=== PATIENT | male | born 1960 | race Caucasian/White ===

== ENCOUNTER 2021-02-13 08:13 | Day surgery (SDC) | payer BC ==
[~2021-02-13] VITALS: Ht 170.2 cm; Wt 91.7 kg
[~2021-02-13 08:13] MED LIST: 00186-0370-20 IH; RT SPIRIVA18 MCG IH; TENORMIN 2525 MG/TAB PO
[2021-02-13] MEDS ORDERED: ASPIRIN 81M81 MG/TA2 PO (08:28)
[2021-02-13] MEDS ORDERED: VENTOLIN0.09 MG IH (08:28)
[2021-02-13] MEDS ORDERED: BUSPAR10 MG PO (08:29)
[2021-02-13] MEDS ORDERED: LIPITOR20 MG PO (08:29)
[2021-02-13] MEDS ORDERED: ATARAX 25MG25 MG/TAB PO (08:29)
[2021-02-13] MEDS ORDERED: 00186-0370-20 IH (08:29)
[2021-02-13] MEDS ORDERED: CLARITIN LIQUI-10 MG PO (08:30)
[2021-02-13] MEDS ORDERED: RT SPIRIVA18 MCG IH (08:31)
[2021-02-13] MEDS ORDERED: TENORMIN100 MG PO (08:31)
[2021-02-13] MEDS ORDERED: UNIPHYL600 MG PO (08:31)
[2021-02-13] MEDS ORDERED: NORVASC 5MG5 MG/TAB PO (08:31)
[2021-02-13 08:32] VITALS: BP 141/100; PULSE 75; TEMP 99
[2021-02-13 10:00] VITALS: BP 103/77; PULSE 67; TEMP 97.5
--- NOTE | 2021-02-13 10:00 | NUR ---
PT TO [facility]AY [facility] VIA CART FROM ENDO LAB, WALKED TO CHAIR, IN ROOM, CALL LIGHT IN REACH, TAKES SNACK, NO C/O
[2021-02-13 10:15] VITALS: BP 112/78; PULSE 66
--- NOTE | 2021-02-13 10:15 | NUR ---
INTO SEE PT AND
[2021-02-13 10:30] VITALS: BP 115/78; PULSE 69
--- NOTE | 2021-02-13 10:30 | NUR ---
DISCHARGE INST. GIVEN TO PT AND ON MODERATE SEDATION PRECAUTIONS, AND COLONSCOPY SCREENING ORDERS WITH VERBAL UNDERSTANDING. IV D'CD INTACT, PT IS UP IN ROOM DRESSED AND DISCHARAGED VIA W/C TO CAR WITH AT 1040
[2021-02-13 13:11] VITALS: BP 105/72; PULSE 69
== END 2021-02-13 10:40 | disposition home or self-care (01) ==
LOC: SDCO 08:13
DX: Z12.11 Encounter for screening for malignant neoplasm of colon (principal); K57.30 Diverticulosis of large intestine without perforation or abscess without bleeding; I10 Essential (primary) hypertension; J44.9 Chronic obstructive pulmonary disease, unspecified; E78.5 Hyperlipidemia, unspecified; F17.210 Nicotine dependence, cigarettes, uncomplicated; F41.9 Anxiety disorder, unspecified; Z20.822 Contact with and (suspected) exposure to COVID-19; Z79.899 Other long term (current) drug therapy; Z88.0 Allergy status to penicillin
CPT/HCPCS: J2704; J7120

== ENCOUNTER 2023-03-01 09:19 | Inpatient (IN) | payer BC ==
[~2023-03-01] VITALS: Ht 170.2 cm; Wt 94.6 kg
[~2023-03-01 09:19] MED LIST changes: +ANTACID 225 MG360 M1 PO; +ANTACID500 M1 PO; +ASPIRIN 81M81 MG/TA2 PO; +ATARAX 25MG25 MG/TAB PO; +ATIVAN 1MG T1 MG/TAB PO; +BREZTRI AEROS10.7 GM IH; +BUSPAR10 MG PO; +CLARITIN 1010 MG/TAB PO; +CLARITIN LIQUI-10 MG PO; +CLEOCIN HCL300 MG PO; +LEVAQUIN 750MG750 M1 PO; +LIPITOR20 MG PO; +LOPRESSOR 225 MG/TAB PO; +NORVASC 5MG5 MG/TAB PO; +OXYGEN NASAL.CANN; +PREDNISONE20 MG PO; +PROBIOTIC BLEN1 EACH PO; +PROTONIX 40MG T40 MG PO; +TENORMIN100 MG PO; +TESSALON P100 MG/CAP PO; +UNIPHYL600 MG PO; +VENTOLIN0.09 MG IH; +WELLBUTRIN 75MG75 MG PO; +WELLBUTRIN XL150 MG PO
[2023-03-01 09:36] LABS: ARTERIAL BLD GAS O2 SATURATION 97.6 % (92-100); ARTERIAL BLOOD GAS BASE EXCESS 4.7 (-2-2); ARTERIAL BLOOD GAS PCO2 32.7 mmHg (35-45); ARTERIAL BLOOD GAS PO2 94.5 mmHg (80-100); ARTERIAL BLOOD GAS pH 7.54 (7.35-7.45)
[2023-03-01 09:40] LABS: HEMOGLOBIN 11.4 g/dl (13.5-18.0); MEAN CELL VOLUME 86 fl (80.0-100.0); MEAN CORPUSCULAR HEMOGLOBIN 28 pg (27-31); MEAN CORPUSCULAR HGB CONC 33 g/dl (33.0-37.0); MEAN PLATELET VOLUME 9.3 fl (7.4-10.4); PLATELET COUNT 447 K/mm3 (130-400); RED BLOOD COUNT 4.03 M/mm3 (4.20-5.60); REDCELL DISTRIBUTION WIDTH-CV 15.6 % (11.5-14.5)
[2023-03-01 09:41] LABS: HEMATOCRIT 34.8 % (42.0-52.0)
[2023-03-01 10:00] LABS: ALBUMIN 2.2 gm/dL (3.4-4.8); BILIRUBIN,TOTAL 0.7 mg/dL (0.2-1.2); CALCIUM 9.4 mg/dL (8.4-10.2); CREATININE, serum 1.12 mg/dL (0.72-1.25); POTASSIUM 4.5 mmol/L (3.5-4.5); TOTAL PROTEIN 5.8 gm/dL (6.2-8.1)
[2023-03-01 10:01] LABS: BAND 6 % (0-10); LYMPHOCYTE 2 % (20.0-51.0)
[2023-03-01 10:02] LABS: ANISOCYTOSIS 1+; NEUTROPHILS 89 % (42.0-75.2); PLATELET ESTIMATE INCREASED (NORMAL)
[2023-03-01 10:03] LABS: POLYCHROMASIA 1+
--- NOTE | 2023-03-01 14:25 | NUR ---
boat worker met with patient's spouse. Patient and spouse are awaiting care options from Dr Dodd's office from recent blood work and are hoping for chemo options. Patient's cancer is progressing and he is becoming more difficult for spouse to manage at home. Worker provided information on nursing homes with [employer] share information. Spouse stated that she could private pay for a month if needed. Worker provided information on the [facility] if future treatment was an option. Patient's son, Kyle arrived to support spouse.
--- NOTE | 2023-03-01 14:35 | NUR ---
Worker spoke with spouse and provided information on [facility] house and [facility]. Worker provided [facility] a referral. Spouse plans to take patient home today and will reach out for a placement after she receives information from Dr Dodd's office. Worker collaborated with nursing regarding the above information.
[2023-03-01] MEDS ORDERED: CLEOCIN HCL300 MG PO (17:57)
--- NOTE | 2023-03-01 18:14 | NUR ---
Pt. arrived to the floor via wheelchair. Pt. is A&OX3, assessment complete. INT to rt. hand. Pt. denies pain or other needs, call light within reach.
[2023-03-01 18:30] VITALS: BP_SYST 149
[2023-03-01 19:28] VITALS: BP 149/91; PULSE 134; TEMP 98.3
[2023-03-01 21:00] VITALS: BP_SYST 131
[2023-03-01 23:24] VITALS: BP 131/86; PULSE 108; TEMP 98.1
[2023-03-02] VITALS (11 sets, daily range): BP systolic 96–144; BP diastolic 61–89; PULSE 113–122; TEMP 97.8–98.1
--- NOTE | 2023-03-02 01:29 | NUR ---
PT'S IV BECAME DISLODGED WHEN TRYING TO RUN VIBRAMYCIN. 3 ATTEMPTS MADE BY THIS NURSE, ANOTHER NURSE, AND PAY STATION ATTENDANT WTIH NO SUCCESS. JIG GRINDER SET UP OPERATOR CHRISTINE CA CONTACTED. CENTRAL LINE ORDERED BY JIG GRINDER SET UP OPERATOR DR. BRUSH. PT TAKEN TO PACU FOR PLACEMENT. TOLERATED PROCEDURE WELL. CENTRAL LINE IS IN RIGHT JUGULAR, TRIPLE LUMEN. ALL THREE LUMENS FLUSH EASILY. VIBRAMYCIN RAN SUCCESSFULLY. PRN ATIVAN GIVEN FOR ANXIETY/SOA.
--- NOTE | 2023-03-02 07:24 | NUR ---
On 03/01/23, [facility] declined patient stating they could not meet his needs.
--- NOTE | 2023-03-02 07:45 | NUR ---
Pt. sitting up in bed with at bedside. Dr. Dodd in the room discussing pt. prognosis at this time. After discussion was complete, shift assessment completed. Pt. is A&OX3, assessment complete. TLC to rt. IJ patent. Pt. denies pain. Pt. reports feeling SOA and request Ativan. Gave per orders. Pt. and deny further needs, call light within reach.
--- NOTE | 2023-03-02 19:24 | NUR ---
RECEIVED CHANGE OF SHIFT REPORT FROM DAY SHIFT RN.
[2023-03-03] VITALS (11 sets, daily range): BP systolic 113–133; BP diastolic 68–78; PULSE 107–132; TEMP 97.8–98.4
[2023-03-03 06:53] LABS: MEAN CELL VOLUME 86 fl (80.0-100.0); MEAN CORPUSCULAR HGB CONC 33 g/dl (33.0-37.0); MEAN PLATELET VOLUME 9.6 fl (7.4-10.4); PLATELET COUNT 350 K/mm3 (130-400); RED BLOOD COUNT 3.35 M/mm3 (4.20-5.60); REDCELL DISTRIBUTION WIDTH-CV 15.9 % (11.5-14.5)
[2023-03-03 06:59] LABS: HEMATOCRIT 28.9 % (42.0-52.0); HEMOGLOBIN 9.6 g/dl (13.5-18.0); MEAN CORPUSCULAR HEMOGLOBIN 29 pg (27-31)
--- NOTE | 2023-03-03 07:04 | NUR ---
CHANGE OF SHIFT REPORT GIVEN TODAY SHIFT RNPRAVEEN.
[2023-03-03 07:10] LABS: CALCIUM 8.6 mg/dL (8.4-10.2); MAGNESIUM 2.1 mg/dL (1.6-2.6); POTASSIUM 4.4 mmol/L (3.5-4.5)
--- NOTE | 2023-03-03 07:11 | NUR ---
KG Payan notified of Critical lab.
[2023-03-03 08:18] LABS: BAND 4 % (0-10); LYMPHOCYTE 3 % (20.0-51.0); NEUTROPHILS 91 % (42.0-75.2); NUCLEATED RED BLOOD CELL 4 (0-6); PLATELET ESTIMATE NORMAL (NORMAL)
--- NOTE | 2023-03-03 08:20 | NUR ---
Pt. sitting up in bed. Pt. is A&OX3, assessment complete. TLC to rt. IJ patent. Pt. denies pain at this time. Call light with in reach, at bedside.
--- NOTE | 2023-03-03 14:10 | NUR ---
Pt. to the floor from PACU. Pt. is A&OX3, assessment complete. IV to rt. forearm patent. Pt. is A&OX3, at this time. vital signs WNl. Pt. tolerating sips of water. Pt. denies pain or other needs.
--- NOTE | 2023-03-03 15:20 | NUR ---
Telehealth visit conducted with Dr. Terry Montano, Infectious Disease. Patient consented to visit. Patients present for visit. Telecommunication initiated without any difficulties during exam. All questions were answered by Dr. Montano
--- NOTE | 2023-03-03 19:09 | NUR ---
PATIENT HAVING ANXIETY AT THIS TIME AND UNABLE TO COMPLETE BREATHING TREATMENT. RT ABLE TO START XOPENEX, BUT PATIENT STOPPED ASSISTED THROUGH TREATMENT. PER FAMILY REQUEST, RT WILL COME BACK AROUND 2300 FOR PRN XOPENEX. INCREASED O2 TO 10 L OXYMASK FOR PATIENT COMFORT.
--- NOTE | 2023-03-03 19:37 | NUR ---
Patient's family at the bedside, head to toe assessment done, see shift assessment, HR is 132, atarax given, ativan not due at this time, called Juliana at 2017 but could not get a hold of her, returned call at 2048 and informed her that patient is tachypneic, tachycardic which he has been on the 120's, and anxious, received an order to put the patient on tele, on oxygen at 5LPM via nasal prong, oxygen saturation at 98%, denies further needs, call light and personal items within reach.
--- NOTE | 2023-03-03 21:08 | NUR ---
Ativan given per request and as ordered PRN.
[2023-03-04 03:03] VITALS: BP 129/85; PULSE 124; TEMP 98.3
--- NOTE | 2023-03-04 03:17 | NUR ---
MONORAIL HOOKER called this nurse saying "patient needs to talk to you". This nurse came to patient's room and patient requested to have his secretions suctioned, suctioned scant white secretions, patient also noted be anxious, ativan given as ordered prn, tessalon given as well for his cough.
--- NOTE | 2023-03-04 03:37 | NUR ---
Patient's called and is wondering if patient can have morphine for air hunger, called Jose and received an order for morphine 1mg IV.
[2023-03-04 05:58] LABS: MEAN CELL VOLUME 88 fl (80.0-100.0); MEAN CORPUSCULAR HGB CONC 32 g/dl (33.0-37.0); MEAN PLATELET VOLUME 9.5 fl (7.4-10.4); PLATELET COUNT 367 K/mm3 (130-400); RED BLOOD COUNT 3.34 M/mm3 (4.20-5.60); REDCELL DISTRIBUTION WIDTH-CV 16.1 % (11.5-14.5)
[2023-03-04 06:01] LABS: HEMATOCRIT 29.3 % (42.0-52.0); HEMOGLOBIN 9.4 g/dl (13.5-18.0); MEAN CORPUSCULAR HEMOGLOBIN 28 pg (27-31)
[2023-03-04 06:08] LABS: CALCIUM 8.8 mg/dL (8.4-10.2); CREATININE, serum 0.8 mg/dL (0.72-1.25); POTASSIUM 4.3 mmol/L (3.5-4.5)
--- NOTE | 2023-03-04 06:11 | NUR ---
Called Dr. Donald and informed him regarding the critical result of WBC which is 70.3. No new orders received at this time.
[2023-03-04 06:32] LABS: BAND 14 % (0-10); LYMPHOCYTE 3 % (20.0-51.0); METAMYELOCYTE 1 % (0-0); PLATELET ESTIMATE NORMAL (NORMAL)
[2023-03-04 06:33] LABS: ANISOCYTOSIS 1+; HYPOCHROMIA 1+; STOMATOCYTE 1+
[2023-03-04 06:34] LABS: NEUTROPHILS 79 % (42.0-75.2)
--- NOTE | 2023-03-04 06:45 | NUR ---
appears to be sleeping, in bed with lights off and eyes closed, bedside shift report received from JARAD Gonzalez at bedside
[2023-03-04 07:50] VITALS: BP 121/74; PULSE 120; TEMP 98.2
--- NOTE | 2023-03-04 07:50 | NUR ---
resting in bed, dyspneic at rest, O2 on at 8L/NC, at bedside, full assessment completed, see interventions for further info, requesting morphine and ativan
--- NOTE | 2023-03-04 08:15 | NUR ---
medicated with ativan and morphine 1mg, cardiouplmonary in and changing NC and O2 humidifier, patient appears as he struggling to breathe and asked to wait and let him rest and wait for morphine to work, after a few minutes was able to have breathing treatment, will monitor
--- NOTE | 2023-03-04 09:00 | NUR ---
Dr Bonilla and care team in to see patient, patient and his are now deciding that he will change to comfort care,
--- NOTE | 2023-03-04 09:43 | NUR ---
appears to be sleeping, in bed with lights off, eyes closed, resp quiet and easy
--- NOTE | 2023-03-04 10:39 | NUR ---
continues to appear to sleep wiht resp quiet and easy
--- NOTE | 2023-03-04 11:45 | NUR ---
awake now and family at bedside, patient denies needs at this time
[2023-03-04] MEDS ORDERED: PREDNISONE20 MG PO (11:56)
[2023-03-04] MEDS ORDERED: DULCOLAX S10 MG/SUPP RC (11:57)
[2023-03-04] MEDS ORDERED: SYSTANE 0.4%-0.1 SOL OU (11:57)
[2023-03-04] MEDS ORDERED: TRANSDERM-0.5 MG/21 TD (11:57)
[2023-03-04] MEDS ORDERED: ROXANOL 20MG20 MG/ML SL (11:57)
[2023-03-04] MEDS ORDERED: ATIVAN 1MG T1 MG/TAB PO (11:57)
--- NOTE | 2023-03-04 12:28 | NUR ---
vitals signs documented as not done as patient is now comfort care
--- NOTE | 2023-03-04 12:37 | NUR ---
telemetry was discontinued, family remains at bedside, medicated with ativan 0.5mg po for c/os anxiousness
--- NOTE | 2023-03-04 14:25 | NUR ---
right IJ removed, pressure held for 5 minutes and covered with guaze and tegaderm, tolerated well, family at bedside
--- NOTE | 2023-03-04 14:32 | NUR ---
On 03/03/23, social work professor met with patient and spouse and they continue plan for aggressive care and desire [facility]. [facility] was here and accepted patient, pending insurance authorization. On this date, social work professor attended multidisciplinary rounding and after further discussion about hospice care, patient and spouse verbalized desire to change from aggressive care to hospice supportive care. Patient and spouse desired the [facility] and worker gave the referral. Patient is accepted to the hospice house and [facility] ambulance was arranged for 2:30 this date. Spouse and family are at bedside and are aware of transfer plans. Worker notified [facility] at [facility] that referral was cancelled.
--- NOTE | 2023-03-04 14:50 | NUR ---
EMS here and patient transfered to [facility] for transfer to [facility], O2 on at 7L/NC, family will follow them
--- NOTE | 2023-03-04 15:45 | NUR ---
report given to JARAD Rudd at [facility] house
--- NOTE | 2023-03-05 11:11 | NUR ---
TARCEY called by House Nurse stating that patient's spouse called last evening stating she wanted patient transferred from [facility] due to not obtaining good care and she had some concerns that staff at [facility] was laughing at her. TRACEY called [facility] and spoke to hearing care practitioner nurse who stated she would be contacting her meter and regulator shop supervisor to address the concern with spouse. Nothing further.
== END 2023-03-04 14:50 | disposition hospice, home (50) | DRG 871 ==
LOC: COL.ER 09:19 → SURG 16:53
PROVIDERS: Emergency Medicine; Internal Medicine; Surgery; ADMIT Internal Medicine
PROC: 02HV33Z Insertion of Infusion Device into Superior Vena Cava, Percutaneous Approach (ICD-10-PCS; principal; 2023-03-01 22:00)
DX: A41.9 Sepsis, unspecified organism (principal); J86.9 Pyothorax without fistula; J96.01 Acute respiratory failure with hypoxia; C38.4 Malignant neoplasm of pleura; J91.0 Malignant pleural effusion; J98.11 Atelectasis; G72.81 Critical illness myopathy; Z66 Do not resuscitate; Z51.5 Encounter for palliative care; K59.00 Constipation, unspecified; I10 Essential (primary) hypertension; F41.9 Anxiety disorder, unspecified; F32.A Depression, unspecified; E78.5 Hyperlipidemia, unspecified; D75.839 Thrombocytosis, unspecified; D64.9 Anemia, unspecified; J44.9 Chronic obstructive pulmonary disease, unspecified; Z99.81 Dependence on supplemental oxygen; Z87.891 Personal history of nicotine dependence; Z79.899 Other long term (current) drug therapy; Z85.118 Personal history of other malignant neoplasm of bronchus and lung; Z87.01 Personal history of pneumonia (recurrent); Z88.1 Allergy status to other antibiotic agents; Z88.0 Allergy status to penicillin; Z23 Encounter for immunization
CPT/HCPCS: C1751; J1644; J1940; J2060; J2270; J2543; J7512